=== PATIENT | male | born 1955 | race Caucasian/White ===

== ENCOUNTER → 2018-01-21 | Outpatient (CLI) | payer MEDICARE ==
--- NOTE | 2018-01-21 12:10 | CT ---
EXAMINATION TYPE: CT abdomen pelvis wo con DATE OF EXAM: 01/21/2018 COMPARISON: Abdominal pain HISTORY: Pt c/o lower abd pain CT DLP: 406.6 mGycm Automated exposure control for dose reduction was used. TECHNIQUE: Helical acquisition of images was performed from the lung bases through the pelvis. Lack of IV contrast and oral contrast limits assessment of the bowel and abdominal viscera. FINDINGS: LUNG BASES: There is bronchiectasis involving bases. Left basilar atelectasis noted tiny pericardial effusion seen.. LIVER/GB: No significant abnormality is appreciated. PANCREAS: No significant abnormality is seen. SPLEEN: No significant abnormality is seen. ADRENALS: No significant abnormality is seen. KIDNEYS: No significant abnormality is seen. ADENOPATHY: None visualized. OSSEOUS STRUCTURES: Multilevel hypertrophic changes are seen with severe degenerative disc disease L 5-S1. BOWEL: There is marked thickening of the wall the sigmoid colon with surrounding pericolonic inflamm atory changes compatible with acute diverticulitis. No definite fluid. No definite free air. Assessme nt for abscess is limited without contrast. No sizable abscess identified. Follow-up exam with contra st could be obtained for confirmation. Evaluation of bowel is limited due to extensive retained fecal. OTHER: Small amount of free fluid in the right pericolic gutter. Atherosclerotic change of the aorta noted. IMPRESSION: 1. Acute sigmoid diverticulitis. Report called to the patient's physician.
== END ==
LOC: RADCTMAIN 11:29
PROVIDERS: ATTEND Nurse Practitioner Adult Health
DX: K57.32 Diverticulitis of large intestine without perforation or abscess without bleeding (principal)
CPT/HCPCS: 74176

== ENCOUNTER → 2023-06-05 | Outpatient (CLI) | payer MEDICARE ==
--- NOTE | 2023-06-05 08:48 | US ---
EXAMINATION TYPE: US kidneys/renal and bladder DATE OF EXAM: 06/05/2023 COMPARISON: US 2015, CT 2017 CLINICAL INDICATION: Male, 67 years old with history of R35.0 FREQUENCY OF MICTURITION; Increased neri quency of urination. EXAM MEASUREMENTS: Right Kidney: 11.4 x 5.6 x 5.5 cm Left Kidney: 12.9 x 6.1 x 5.8 cm Right Kidney: Anechoic area seen upper pole: 1.7 x 1.7 x 1.8 cm. Left Kidney: Appears enlarged. Bladder: Appearance of anechoic diverticulum. Bilateral Jets seen: Yes IMPRESSION: Simple cyst right kidney. Urinary bladder diverticulum.
--- NOTE | 2023-06-05 08:57 | US ---
EXAMINATION TYPE: US prostate transrectal DATE OF EXAM: 06/05/2023 COMPARISON: NONE CLINICAL INDICATION: Male, 67 years old with history of R35.0 FREQUENCY OF MICTURITION; Frequency of micturition This examination was performed using the transrectal probe. EXAM MEASUREMENTS: Gland Size: 5.2 x 4.7 x 3.0 cm Volume: 38.41 Predicted PSA: 4.61 Actual PSA (if available): 0.90 *Very heterogeneous gland. Prominent hyperechoic calcifications seen in central zone, largest measure s 1.3 x 1.0 x 0.3 cm in transverse. Anechoic area seen central zone: 0.8 x 0.4 x 0.2 cm. No hypoechoic areas seen within peripheral zone. IMPRESSION: Prostatic glandular hypertrophy without suspicious lesion seen. Predicted PSA = volume x 0.12 ng/ml Calculated Volume = 0.5236 x L x W x H
== END | disposition home or self-care (01) ==
LOC: RADUSWWP 07:36
PROVIDERS: ATTEND Family Medicine
DX: N40.1 Benign prostatic hyperplasia with lower urinary tract symptoms (principal); R35.0 Frequency of micturition; N28.1 Cyst of kidney, acquired
CPT/HCPCS: 76770; 76872

== ENCOUNTER → 2023-06-07 | Outpatient (CLI) | payer MEDICARE ==
--- NOTE | 2023-06-07 19:27 | CA ---
Stress Echo Report Vin Lea Age: 67 Gender: M : 1955 Exam Date: 06/07/2023 10:48 Exam Location: [facility] [facility] Ht (in): 70 Wt (lb): 177 Ordering Physician: Fer Norton MD Referring Physician: Fer Norton MD Ship Pilot: [email or web address] ramsey Technologist Procedure CPT: Indication: R06.09 Dyspnea ICD-9 Codes: Rhythm: Patient History: Cardiac Medications: Medications in past 24 hours: Contrast: N/A Stress Results Protocol: [place] Total dose(mL): NA Exercise Duration (min:sec): 6:[address] Depression (mm): Angina Score: [place] Score: METS: 7.7 Resting HR: 59 Resting BP: 109 / 65 Peak HR: 102 Peak BP: 158 / 87 Max Predicted HR: 151 68 % Max Predicted HR Target HR: 128 Double Product: [id number] Stress Summary: BP Response: Reason for Termination: Maximal effort/unable to continue Cardiac Symptoms: NO SYMPTOMS ECG Analysis Resting ECG: Normal sinus rhythm, normal axis, heart rate 85 beats a minute Stress ECG: No significant ST-T wave changes diagnostic for ischemia. More chronotropic competence Arrhythmia: No arrhythmias or ectopic beats Echo Analysis Resting Echo: Normal global and segmental systolic function. No obvious regional wall motion abnormality Peak Echo Analysis: Normal augmentation of global and segmental systolic function. No obvious stress-induced regional wall motion abnormality MEASUREMENTS (Male/Female) Normal Values CONCLUSIONS Fair exercise tolerance with patient achieving 7.7 METS Poor chronotropic competence with exercise At 68% of age predicted maximum heart rate, there is no evidence of ischemia by Echo or ECG. Stress test is nondiagnostic as patient was not able to achieve 85% of aged predicted Maximum heart rate Dr Dilan Miranda (Electronically Signed) Final Date: 07 June 2023 19:27
== END | disposition home or self-care (01) ==
LOC: RADNMMAIN 09:52
PROVIDERS: ATTEND Family Medicine
DX: R06.09 Other forms of dyspnea (principal)
CPT/HCPCS: 93351